=== PATIENT | female | born 1955 | race Caucasian/White ===

== ENCOUNTER 2022-08-11 12:36 | Emergency (ER) | payer MEDICARE, MEDICAID, SELFPAY ==
[2022-08-11 12:42] VITALS: BP 153/96; PULSE 80; RESP 18; TEMP 37.1; O2SAT 96
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
[2022-08-11 13:31] VITALS: RESP 18
[2022-08-11] MEDS: morphine 4 mg/mL SDV 1 mL IVP (13:31)
[2022-08-11] MEDS: ketorolac 30 mg/mL INJ 15 MG IVP (13:31)
[2022-08-11 14:40] LABS: Glomerular Filtration Rate 99.1 mL/min (90-130)
[2022-08-11] MEDS: iohexol 350 mg/mL 500 mL Btl (per mL) IV (14:58)
[2022-08-11 15:48] VITALS: RESP 18
== END 2022-08-11 15:49 | disposition home or self-care (01) ==
PROVIDERS: Emergency Provider Emergency Medicine
DX: M54.9 Dorsalgia, unspecified; R07.89 Other chest pain; R91.1 Solitary pulmonary nodule
CPT/HCPCS: 71260; 74177; 82565; 96374; 96375; 99285; J1885; J2270; Q9967

== ENCOUNTER 2023-02-20 12:18 | Outpatient (CLI) | payer MEDICARE, SELFPAY ==
--- NOTE | 2023-02-20 12:32 | CT_ITS ---
WS: [id number] CT chest w con* [id number] HISTORY: LUNG NODULE TECHNIQUE: Axial imaging performed through the thorax. Coronal and sagittal reformats are submitted. All CT scans at [facility] use at least one of these dose optimization techniques: automated exposure control; mA and/or kV adjustment per patient size (includes targeted exams where dose is mat ched to clinical indication); or iterative reconstruction. CONTRAST: Omnipaque 350; 100 mL IV. DLP: 177.08 mGy.cm COMPARISON: 08/11/2022 Lungs and central airway: Mild hyperinflation of both lungs. No interval change of the 11 mm, noncalc ified nodule RIGHT upper lobe. No additional mass, nodule or pneumonia. Pleura: Normal. No pleural effusion. Heart and pericardium: Normal size heart with no pericardial effusion. Mediastinum and ellen: No mediastinum or hilar adenopathy. Vessels: Mild atherosclerosis aorta. No aneurysm. Normal size pulmonary artery. Chest wall and lower neck: No soft tissue masses. Upper abdomen: Normal. Osseous structures: No destructive process. CT/CT chest w con* [id number] IMPRESSION: 1. Stable noncalcified 11 mm RIGHT upper lobe nodule since 08/11/2022. Recommen d continued [address] follow-up to document long-term stability. 2. Mild emphysema. 3. No adenopathy.
[2023-02-20 12:54] LABS: Blood Urea Nitrogen 10 mg/dL (8-23); Glomerular Filtration Rate 71.1 mL/min (90-130)
[2023-02-20] MEDS: iohexol 350 mg/mL 500 mL Btl (per mL) IV (13:03)
== END 2023-02-20 12:19 | disposition home or self-care (01) ==
PROVIDERS: PCP Physician Assistant; Visit Provider Physician Assistant
DX: R91.1 Solitary pulmonary nodule (principal); J43.9 Emphysema, unspecified; Z01.89 Encounter for other specified special examinations
CPT/HCPCS: 71260; 82565; 84520; Q9967

== ENCOUNTER 2023-02-26 10:35 | Outpatient (CLI) | payer MEDICARE, SELFPAY ==
--- NOTE | 2023-02-26 10:56 | MM_ITS ---
WS: [id number] BILATERAL SCREENING DIGITAL TOMOSYNTHESIS MAMMOGRAM WITH CAD HISTORY: SCREENING COMPARISON: 05/12/2016 and 12/23/2012 Bilateral CC and MLO views with tomosynthesis and synthetic mammography submitted. Computer aided det ection analyzed. Breast composition: There are scattered areas of fibroglandular density. No suspicious masses, microc alcifications or architectural distortion. MM/[place] [id number] IMPRESSION: BI-RADS: 1-Negative FOLLOW UP: 1 Year Follow-up
== END 2023-02-26 10:36 | disposition home or self-care (01) ==
LOC: RAD 10:40
PROVIDERS: PCP Physician Assistant; Visit Provider Physician Assistant
DX: Z12.31 Encounter for screening mammogram for malignant neoplasm of breast (principal)
CPT/HCPCS: 77063; 77067

== ENCOUNTER 2023-03-28 07:58 | Emergency (ER) | payer MEDICARE, MEDICAID, SELFPAY ==
[2023-03-28 08:02] VITALS: BP 156/83; PULSE 105; RESP 16; TEMP 36.6; O2SAT 94; BMI 21.7
--- NOTE | 2023-03-28 08:15 | ED_ITS ---
HPI - Dizziness General: Chief Complaint: Dizziness Stated Complaint: dizziness, stressed out, anxiety Time Seen by Provider: 03/28/23 08:01 Source: patient Mode of arrival: ambulatory History of Present Illness: HPI Narrative: 67-year-old female presents emergency room complaining of dizziness is worse when she sits up or moves her head better when she lays flat remains still. She gets vertigo symptoms. She has been having it for the last 3 days and is progressively worsened. She is concerned as her Rafita's she is on Synthroid has not recently changed the dose she denies any chest pain. She says she has been short of breath at times no history of DVT she is not on any anticoagulants. No fever sweats chills denies abdominal pain. MD elicited complaint: dizziness Onset (ago): day(s) (3) Timing: gradual onset Severity: mild Description: sense of movement and room spinning Context: change in body position Exacerbating factors: change in body position Relieving factors: remaining still and keeping eyes open Associated symptoms: Reports other; Denies change in hearing, chest pain, chills, cough, diaphoresis, ear discharge, ear pressure, fevers/chills, headache(s), malaise, nausea, nasal congestion, palpitations, rash, short of breath, syncope, tinnitus, vomiting or weakness Review of Systems Const: Denies: fever(s), chills, fatigue, malaise or diaphoresis ENMT: Denies: ear discharge, change in hearing, tinnitus or nasal congestion Card: Denies: chest pain, palpitations or syncope Resp: Denies: dyspnea, productive cough or non-productive cough GI: Denies: nausea or vomiting : Denies: flank pain, difficulty voiding, dysuria, urinary frequency or urinary urgency Skin/Breast: Denies: rash or pruritus Neuro: Denies: headache(s) PFSH ED PFSH: Medical History No significant past medical history Surgical History No significant past surgical history Social History Smoking and tobacco status: current every day smoker Physical Exam Const: GENERAL APPEARANCE: cooperative and comfortable ORIENTATION/CONSCIOUSNESS: Yes awake, Yes oriented to person, Yes oriented to place and Yes oriented to time HENMT: COMMON NORMALS: normocephalic, atraumatic and hearing grossly normal bilaterally HEAD & SCALP: normocephalic and atraumatic Resp: COMMON NORMALS: normal respiratory effort, No retractions, No use of accessory muscles and clear to auscultation bilaterally AUSCULTATION: clear to auscultation bilaterally Cardio: COMMON NORMALS: regular rate, regular rhythm and No murmurs present (Cardio) RATE: regular rate RHYTHM: regular rhythm GI: COMMON NORMALS: Soft to palpation and No hepatosplenomegaly present AUSCULTATION: Yes normoactive bowel sounds PALPATION: Yes Soft to palpation, No Tenderness to palpation present (GI), No Guarding due to palpation present (GI) and Yes No hepatosplenomegaly present Extremity: COMMON NORMALS: normal to inspection, capillary refill normal, no clubbing, cyanosis or edema, no calf tenderness and no pedal edema Neuro: SENSORIUM/ORIENTATION: Yes oriented to person, Yes oriented to place and Yes oriented to time Skin: COMMON NORMALS: no rashes or lesions noted GENERAL SKIN EXAM: no rashes or lesions noted Course Vital Signs: Vital signs: Vital Signs Temperature 97.9 F 03/28/23 08:02 Pulse Rate 83 03/28/23 12:05 Respiratory Rate 18 03/28/23 12:05 Blood Pressure 148/72 03/28/23 12:05 Pulse Oximetry 95 03/28/23 12:05 Oxygen Delivery Me thod Room Air 03/28/23 08:02 MDM - Dizziness Medical Decision Making Symptoms nearly fully resolved with fluids and meclizine. Patient is feeling much better will discharge home meclizine use as needed follow-up with primary care if not improving. Medical Records I reviewed the patient's medical records. Lab Data I reviewed the patient's lab results. 03/28/23 08:18 03/28/23 08:18 Radiology Impressions Chest X-Ray 03/28/23 08:17 IMPRESSION: No acute findings. Laboratory Results WBC 10.6 10^3/uL (4.0-10.0) H 03/28/23 08:18 RBC 4.16 10^6/uL (4.1-5.3) 03/28/23 08:18 Hgb 14.1 g/dL (11.5-15.3) 03/28/23 08:18 Hct 42.9 % (37.0-47.0) 03/28/23 08:18 MCV 103.1 fl (81-99) H 03/28/23 08:18 MCH 33.9 pg (28.0-34.0) 03/28/23 08:18 MCHC 32.9 g/dL (30.0-36.0) 03/28/23 08:18 RDW 12.7 % (12.1-15.1) 03/28/23 08:18 Plt Count 293 10^3/cmm (130-400) 03/28/23 08:18 MPV 9.7 fL (7.4-10.4) 03/28/23 08:18 Neut % (Auto) 68.1 % 03/28/23 08:18 Lymph % (Auto) 19.9 % 03/28/23 08:18 Ross % (Auto) 10.0 % 03/28/23 08:18 Eos % (Auto) 0.8 % 03/28/23 08:18 Baso % (Auto) 0.9 % 03/28/23 08:18 Neut # (Auto) 7.23 10^3/uL (1.8-7.7) 03/28/23 08:18 Lymph # (Auto) 2.1 10^3/uL (0.8-4.8) 03/28/23 08:18 Ross # (Auto) 1.1 10^3/uL (0.2-0.9) H 03/28/23 08:18 Eos # (Auto) 0.1 10^3/uL (0.0-0.8) 03/28/23 08:18 Baso # (Auto) 0.1 10^3/uL (0.0-0.1) 03/28/23 08:18 Nucleated RBC % (auto) 0 % 03/28/23 08:18 Nucleated RBCs # 0.0 /100WBC 03/28/23 08:18 Sodium 136 mmol/L (136-145) 03/28/23 08:18 Potassium 4.0 mmol/L (3.5-5.1) 03/28/23 08:18 Chloride 100 mmol/L (98-107) 03/28/23 08:18 Carbon Dioxide 24 mmol/L (22-29) 03/28/23 08:18 Anion Gap 16.0 (5-19) 03/28/23 08:18 BUN 6 mg/dL (8-23) L 03/28/23 08:18 Creatinine 0.5 mg/dL (0.5-0.9) 03/28/23 08:18 GFR Calculation 122.3 mL/min (90-130) 03/28/23 08:18 Glucose 98 mg/dL (65-115) 03/28/23 08:18 Calculated Osmolality 280 mOsm/kg (285-295) L 03/28/23 08:18 Calcium 8.8 mg/dL (8.5-10.5) 03/28/23 08:18 Total Bilirubin 0.2 mg/dL (0.15-1.2) 03/28/23 08:18 AST 30 U/L (0-32) 03/28/23 08:18 ALT 15 U/L (0-33) 03/28/23 08:18 Alkaline Phosphatase 46 U/L (35-105) 03/28/23 08:18 Total Protein 7.6 g/dL (6.6-8.7) 03/28/23 08:18 Albumin 4.5 g/dL (3.5-5.2) 03/28/23 08:18 Globulin 3.1 g/dL (1.3-4.6) 03/28/23 08:18 TSH 2.09 uIU/mL (0.27-4.20) 03/28/23 08:18 Urine Color Yellow (Yellow) 03/28/23 10:20 Urine Appearance Hazy (CLEAR) A 03/28/23 10:20 Urine pH 7 (5-7) 03/28/23 10:20 Ur Specific George 1.000 (1.005-1.030) L 03/28/23 10:20 Urine Protein Neg (Negative) 03/28/23 10:20 Urine Glucose (UA) Norm (Normal) 03/28/23 10:20 Urine Ketones Negative (Negative) 03/28/23 10:20 Urine Blood 2+ (Negative) H 03/28/23 10:20 Urine Nitrate Positive (Negative) H 03/28/23 10:20 Urine Bilirubin Neg (Negative) 03/28/23 10:20 Urine Urobilinogen Norm mg/dL (Negative) 03/28/23 10:20 Ur Leukocyte Esterase 2+ (Negative) H 03/28/23 10:20 Urine RBC 5-10 /hpf (0-2) H 03/28/23 10:20 Urine WBC 25-40 /hpf (0-5) H 03/28/23 10:20 Ur Squamous Epith Cells 5-10 /hpf (0-5) H 03/28/23 10:20 Amorphous Sediment Not Reportable 03/28/23 10:20 Urine Bacteria 4+ /hpf (NONE) H 03/28/23 10:20 Discharge Plan Discharge Patient Disposition: Home Clinical Impression: Benign paroxysmal positional vertigo Condition: Stable Prescriptions: New meclizine 25 mg tablet 25 mg PO QID PRN (Reason: dizziness) Qty: 20 0RF No Action lovastatin 40 mg tablet 40 mg PO DAILY Vitamin B-12 50 mcg Tablet 50 mcg PO DAILY calcium carbonate [Calcium 500] 500 mg calcium (1,250 mg) Tablet 500 mg PO DAILY ascorbic acid (vitamin C) [Vitamin C] 500 mg Tablet 500 mg PO DAILY levothyroxine [Synthroid] 112 mcg tablet 112 mcg PO DAILY biotin 1 mg Tablet 1 mg PO DAILY cholecalciferol (vitamin D3) [Vitamin D3] 25 mcg (1,000 unit) Tablet 25 mcg PO DAILY Beet Root 1 tab PO DAILY Discharge Orders: Discharge ED (Routine); Ordered 03/28/23 Ordered By: Edgar Iglesias Referrals: Leatha Ballesteros PA [Primary Care Provider] - Discharge Diet: Usual diet Discharge Activity: Increase activity as tolerated Patient Instructions: Benign Paroxysmal Positional Vertigo (ED), Opioid Safety, Pain Management Coding Level of Care Code ED Tactical Debriefer for Khadijah Castanon
--- NOTE | 2023-03-28 08:17 | XRR_ITS ---
PROCEDURE INFORMATION: Exam: XR Chest Exam date and time: 03/28/2023 8:31 AM Age: 67 years old Clinical indication: Other: Tachycardia TECHNIQUE: Imaging protocol: Radiologic exam of the chest. Views: 1 view. COMPARISON: CT chest w con* [id number] 02/20/2023 12:55 PM FINDINGS: Lungs: Unremarkable. No consolidation. Pleural spaces: Unremarkable. No pleural effusion. No pneumothorax. Heart/Mediastinum: Unremarkable. No cardiomegaly. Bones/joints: Unremarkable. XR/XR chest 1V portable [id number] IMPRESSION: No acute findings.
[2023-03-28 08:20] VITALS: BP 145/87; BP 160/83; BP 166/92; PULSE 92; PULSE 94; PULSE 97
[2023-03-28 08:27] LABS: Basophils # 0.1 10^3/uL (0.0-0.1); Basophils % 0.9 %; Eosinophils # 0.1 10^3/uL (0.0-0.8); Eosinophils % 0.8 %; Hematocrit 42.9 % (37.0-47.0); Hemoglobin 14.1 g/dL (11.5-15.3); Lymphocytes # 2.1 10^3/uL (0.8-4.8); Lymphocytes % 19.9 %; Mean Corpuscular HGB Conc 32.9 g/dL (30.0-36.0); Mean Corpuscular Hemoglobin 33.9 pg (28.0-34.0); Mean Corpuscular Volume 103.1 fl (81-99); Mean Platelet Volume 9.7 fL (7.4-10.4); Monocytes # 1.1 10^3/uL (0.2-0.9); Neutrophils # 7.23 10^3/uL (1.8-7.7); Neutrophils % 68.1 %; Nucleated Red Blood Cells % 0 %; Platelet Count 293 10^3/cmm (130-400); Red Blood Count 4.16 10^6/uL (4.1-5.3); Red Cell Distribution Width 12.7 % (12.1-15.1); White Blood Count 10.6 10^3/uL (4.0-10.0)
--- NOTE | 2023-03-28 08:28 | ECG_ITS ---
[facility] Test Date: 2023-03-28 Pat Name: Ruby Guzman Department: Room: Gender: Female Rn Assessment: : 1955 Requested By: Edgar Cornell Order Number: [id number] MD: Sonny Braga M.D. Measurements Intervals [place] Rate: 81 P: 69 AL: 197 QRS: 75 QRSD: 70 T: 67 QT: 372 QTc: 432 Interpretive Statements SINUS RHYTHM No previous ECG available for comparison Electronically Signed On 03-28-2023 8:36:02 CDT by Sonny Braga M.D. [email or web address]
[2023-03-28] MEDS: meclizine 25 mg tablet PO (08:56)
[2023-03-28 08:57] LABS: Alanine Aminotransferase 15 U/L (0-33); Albumin Level 4.5 g/dL (3.5-5.2); Alkaline Phosphatase 46 U/L (35-105); Aspartate Amino Transferase 30 U/L (0-32); Blood Urea Nitrogen 6 mg/dL (8-23); Calcium 8.8 mg/dL (8.5-10.5); Carbon Dioxide 24 mmol/L (22-29); Chloride 100 mmol/L (98-107); Globulin 3.1 g/dL (1.3-4.6); Glomerular Filtration Rate 122.3 mL/min (90-130); Glucose 98 mg/dL (65-115); Osmolality Calculated 280 mOsm/kg (285-295); Sodium 136 mmol/L (136-145); Thyroid Stimulating Hormone 2.09 uIU/mL (0.27-4.20); Total Bilirubin 0.2 mg/dL (0.15-1.2); Total Protein 7.6 g/dL (6.6-8.7)
[2023-03-28] MEDS: sodium chloride 0.9% 1,000 ML 999 ML IV (08:58)
--- NOTE | 2023-03-28 10:17 | PC.NURSE ---
PT AMBULATED TO RESTROOM. GAIT WNL. PT STATES SHE IS STILL A LITTLE DIZZY BUT NOT BAD WHEN SHE ARRIVED.
[2023-03-28 10:46] LABS: Bilirubin Urine Neg (Negative); Blood Urine 2+ (Negative); Glucose Urine UA Norm (Normal); Ketones Urine Negative (Negative); Nitrate Urine Positive (Negative); Protein Urine Neg (Negative); Urine Appearance Hazy (CLEAR); Urine Color Yellow (Yellow); Urobilinogen Urine Norm (Negative); pH Urine 7 (5-7)
[2023-03-28 10:47] LABS: Add Urine Microscopic? YES; Leukocyte Esterase Urine 2+ (Negative)
[2023-03-28 10:48] LABS: WBC Urine 25-40 /hpf (0-5)
[2023-03-28 10:49] LABS: Add Urine Culture? Yes; Bacteria Urine 4+ /hpf
[2023-03-28 12:05] VITALS: BP 148/72; PULSE 83; RESP 18; O2SAT 95
== END 2023-03-28 12:06 | disposition home or self-care (01) ==
PROVIDERS: Emergency Provider Family Medicine; PCP Physician Assistant
DX: H81.10 Benign paroxysmal vertigo, unspecified ear (principal); F17.210 Nicotine dependence, cigarettes, uncomplicated
CPT/HCPCS: 71045; 80053; 81001; 84443; 85025; 87077; 87086; 87186; 93005; 96360; 99285; J7030; J8597